=== PATIENT | male | born 1980 | race African-American/Black ===

== ENCOUNTER 2024-08-18 15:01 | Emergency (ER) | payer OTHER ==
[2024-08-18 15:18] VITALS: BP 132/93; PULSE 98; RESP 18; TEMP 98.2; BMI 28.8
[2024-08-18] MEDS ORDERED: KETOROLAC TROMETHAMINE 30 MG/1 ML VIAL ONE (15:48)
[2024-08-18] MEDS: KETOROLAC TROMETHAMINE 30 MG/1 ML VIAL IM ONE (15:55)
== END 2024-08-18 17:04 | disposition home or self-care (01) ==
LOC: JERFT 15:01 → JER 15:01 → JERFT 17:04
PROC: 3E0233Z Introduction of Anti-inflammatory into Muscle, Percutaneous Approach (ICD-10-PCS; principal; 2024-08-18)
DX: M25.512 Pain in left shoulder (principal)
CPT/HCPCS: 73030-TC-LT-FY; 99284-25